=== PATIENT | male | born 1975 | race Hispanic/Latino ===

== ENCOUNTER 2016-11-14 05:09 | Emergency (ER) | payer BC ==
[2016-11-14 05:09] VITALS: BMI 30.1
[2016-11-14] MEDS ORDERED: DiphenhydrAMINE 50 mg/ml Inj IV STA (06:09)
[2016-11-14 06:12] LABS: BASO % 0.7 % (0.0-2.0); EOS # 0.2 K/uL (0.0-0.7); EOS % 2.9 % (0.0-4.0); HEMATOCRIT 39.2 % (35.0-51.0); LYMPH # 2.6 K/uL (1.0-4.3); LYMPH % 36.8 % (20.0-40.0); MEAN CELL VOLUME 88.4 fl (80.0-94.0); MEAN CORPUSCULAR HEMOGLOBIN 30.1 pg (27.0-31.0); MEAN CORPUSCULAR HGB CONC 34.1 g/dL (33.0-37.0); MEAN PLATELET VOLUME 8.7 fl (7.2-11.7); MONO # 0.6 K/uL (0.0-0.8); MONO % 7.8 % (0.0-10.0); NEUT # 3.7 K/uL (1.8-7.0); NEUT % 51.8 % (50.0-75.0); RED CELL DISTRIBUTION WIDTH 12.9 % (11.5-14.5); WHITE BLOOD COUNT 7.2 K/uL (4.8-10.8)
--- NOTE | 2016-11-14 06:23 | ED PDOC ---
HPI: Eye Injury/Pain Time Seen by Provider: 11/14/16 05:29 Chief Complaint (Nursing): Eye Problem Chief Complaint (Provider): swelling around eyes History Per: Patient History/Exam Limitations: no limitations Onset/Duration Of Symptoms: Days (1) Current Symptoms Are (Timing): Still Present Quality: Dull Associated Symptoms: Swelling Additional History Per: Patient Additional Complaint(s): 41 y/o male presents for eval of swelling/redness around both eyes x 1 day. Patient states swelling started mild, but has gotten progressively worse (right> left). Patient denies fever, known allergen exposure, pain/itching to eyes, discharge from eyes, pain with movement of eyes. Past Medical History Reviewed: Historical Data, Nursing Documentation, Vital Signs Vital Signs: Last Vital Signs Temp 97.8 F 11/14/16 05:27 Pulse 65 11/14/16 05:27 Resp 16 11/14/16 05:27 BP 123/82 11/14/16 05:27 Pulse Ox 98 11/14/16 05:27 - Medical History PMH: No Chronic Diseases - Surgical History Surgical History: No Surg Hx Denies: Pacemaker - Family History Family History: States: Unknown Family Hx - Home Medications Home Medications: Ambulatory Orders Medication Instructions Recorded Ibuprofen [Advil] 200 mg PO PRN PRN 07/22/14 Loratadine [Claritin] 10 mg PO PRN PRN 10/15/14 Loratadine/Pseudoephedrine 1 each PO DAILY #30 tab.er.24h 08/09/16 [Loratadine-D 24Hr Tablet] predniSONE [predniSONE Tab] 60 mg PO DAILY 4 Days 08/09/16 - Allergies Allergies/Adverse Reactions: Allergies Allergy/AdvReac Type Severity Reaction Status Date / Time No Known Allergies Allergy Verified 08/09/16 00:53 Review of Systems ROS Statement: Except As Marked, All Systems Reviewed And Found Negative Eyes: Positive for: Eyelid Inflammation Physical Exam - Reviewed Nursing Documentation Reviewed: Yes Vital Signs Reviewed: Yes - Physical Exam Appears: Positive for: Well, Non-toxic, No Acute Distress Head Exam: Positive for: ATRAUMATIC, NORMAL INSPECTION, NORMOCEPHALIC Eye Exam: Positive for: EOMI, PERRL, Periorbital swelling (R>L, with + erythema) . Negative for: Periorbital tenderness, Conjunctival injection ENT: Positive for: Normal ENT Inspection Cardiovascular/Chest: Positive for: Regular Rate, Rhythm Respiratory: Positive for: Normal Breath Sounds Gastrointestinal/Abdominal: Positive for: Normal Exam Extremity: Positive for: Normal ROM Neurologic/Psych: Positive for: Alert, Oriented - Laboratory Results Result Diagrams: 11/14/16 06:00 - ECG O2 Sat by Pulse Oximetry: 98 - Progress ED Course And Treament: labs, IV solumedrol, IV benadryl Disposition - Clinical Impression Clinical Impression: Periorbital swelling - Disposition Referrals: David Kelly MD [Primary Care Provider] - Disposition: Transfer of Care Disposition Time: 06:23 Condition: STABLE Patient Signed Over To: Toni Desai Handoff Comments: pending labs, re-eval
[2016-11-14 06:24] LABS: ALB/GLOB RATIO 1.5 (1.0-2.1); ALKALINE PHOSPHATASE 52 U/L (38-126); ALT/SGPT 33 U/L (21-72); AST/SGOT 23 U/L (17-59); BILIRUBIN,TOTAL 0.6 mg/dl (0.2-1.3); BLOOD UREA NITROGEN 13 mg/dl (9-20); CALCIUM 8.8 mg/dL (8.4-10.2); CARBON DIOXIDE 25 mmol/L (22-30); CHLORIDE 108 mmol/L (98-107); GFR AFRICAN-AMERICAN > 60; GLUCOSE,RANDOM 95 mg/dL (75-110); POTASSIUM 3.9 MMOL/L (3.6-5.0); SODIUM 142 mmol/l (132-148); TOTAL PROTEIN 6.6 G/DL (6.3-8.2)
[2016-11-14] MEDS ORDERED: DiphenhydrAMINE 50 mg/ml Inj ONE (06:30)
--- NOTE | 2016-11-14 06:44 | ED PDOC ---
- Laboratory Results Result Diagrams: 11/14/16 06:00 11/14/16 06:00 - ECG O2 Sat by Pulse Oximetry: 98 (RA) Pulse Ox Interpretation: Normal Medical Decision Making Medical Decision Making: Patient signed out to provider from Edmond TORRES at 0600 pending labs and reevaluation. Patient signed out to Dr. Galaviz at 0700 pending labs and reevaluation. Disposition - Clinical Impression Clinical Impression: Periorbital swelling - Disposition Referrals: David Kelly MD [Primary Care Provider] - Condition: STABLE
--- NOTE | 2016-11-14 07:34 | ED PDOC ---
- Laboratory Results Result Diagrams: 11/14/16 06:00 11/14/16 06:00 - ECG O2 Sat by Pulse Oximetry: 98 (RA) Pulse Ox Interpretation: Normal - Progress Re-evaluation Time: 07:42 Condition: Improved (No SOB or difficulty swallowing. Swelling improved) Medical Decision Making Medical Decision Makin signed over to me by Makenna Desai MD pending labs, reassessment. Disposition - Clinical Impression Clinical Impression: Periorbital swelling, Allergic reaction - POA Present On Arrival: None - Disposition Referrals: David Kelly MD [Primary Care Provider] - Disposition: Routine/Home Disposition Time: 07:43 Condition: STABLE Prescriptions: Cetirizine HCl [Zyrtec] 10 mg PO DAILY #10 capsule Famotidine [Pepcid] 20 mg PO Q12 #20 tab predniSONE [predniSONE Tab] 10 mg PO TID #15 tab Instructions: General Allergic Reaction (ED) Forms: [facility] ED School/Work Excuse Additional Comments - Additional Comments Additional Comments: Scribe Attestation Documented by Myke Persaud acting as a scribe for Mika Galaviz MD. Provider Attestation All medical record entries made by the Scribe were at my direction and personally dictated by me. I have reviewed the chart and agree that the record accurately reflects my personal performance of the history, physical exam, medical decision making, and the department course for this patient. I have also personally directed, reviewed, and agree with the discharge instructions and disposition
[2016-11-14 08:01] VITALS: BP 123/67; PULSE 78; RESP 18; TEMP 98.2; O2SAT 100
== END 2016-11-14 08:01 | disposition home or self-care (01) ==
LOC: H.ER 05:09
DX: T78.40XA Allergy, unspecified, initial encounter (principal)
CPT/HCPCS: 80053; 85025; 96374; 99283; J1200; J2930